=== PATIENT | female | born 1975 | race African-American/Black ===

== ENCOUNTER → 2021-06-19 | Outpatient (CLI) | payer OTHER ==
[2015-02-19 13:40] VITALS: BP 132/73
--- NOTE | 2021-06-19 17:25 | RAD ---
XR BILATERAL HIP (WITH OR WITHOUT PELVIS) LEFT 2 VIEWS, XR LUMBAR SPINE 2-3V 06/19/2021 9:20 AM INDICATION: Left hip and back pain COMPARISON: None available. TECHNIQUE: AP view the pelvis and 2 dedicated views of the left hip are provided. 3 views of the lum bar spine are provided. FINDINGS/ IMPRESSION: Left hip: There is no acute fracture or dislocation. Moderate joint space narrowing involving the lef t hip joint inferomedially with subcortical sclerosis and marginal osteophytosis compatible with mode rate osteoarthrosis of the left hip. Bone mineralization is within normal limits. Regional soft tissu es are within normal limits. There is no soft tissue gas or osseous erosion. No radiopaque foreign natalee dy. IUD is present. Lumbar spine: There is 2 mm retrolisthesis of L5 on S1. No spondylolysis. Vertebral body heights are maintained. Mild disc height loss at L3-L4. Mild anterior marginal osteophytosis. No significant osse ous neural foraminal or spinal canal stenosis. No acute fractures identified. Minimal levoconvex curv ature of the lumbar spine apex levocurvature at L2-L3. Moderate facet arthropathy noted at L4-L5, rig ht greater than left. Electronically signed by: Priyanka Abbott MD (06/19/2021 5:23 PM) [id number]
== END ==
LOC: RAD 09:12
PROVIDERS: ATTEND Anesthesiology Pain Medicine
DX: Z02.71 Encounter for disability determination (principal); M47.816 Spondylosis without myelopathy or radiculopathy, lumbar region; M43.8X6 Other specified deforming dorsopathies, lumbar region
CPT/HCPCS: 72100; 73502

== ENCOUNTER → 2021-06-25 | Outpatient (CLI) | payer MEDICAID ==
[2015-02-19 13:40] VITALS: BP 132/73
[2021-06-25 11:48] LABS: BASO % 1 % (0-3); EOS # 0.1 x10^3/uL (0.0-0.7); EOS % 1 % (0-3); HEMATOCRIT 39.7 % (36.0-47.0); HEMOGLOBIN 13.6 g/dL (12.0-15.5); LYMPH # 1.7 x10^3/uL (1.0-4.8); LYMPH % 27 % (24-48); MEAN CORPUSCULAR HEMOGLOBIN 31 pg (25-35); MEAN CORPUSCULAR HGB CONC 34 g/dL (31-37); MEAN CORPUSCULAR VOLUME 91 fL (79-100); MONO # 0.3 x10^3/uL (0.0-1.1); MONO % 5 % (0-9); NEUT # 4.2 x10^3uL (1.8-7.7); NEUT % 66 % (31-73); PLATELET COUNT 280 x10^3/uL (140-400); RED BLOOD COUNT 4.36 x10^6/uL (3.50-5.40); RED CELL DISTRIBUTION WIDTH 12.6 % (11.5-14.5); WHITE BLOOD COUNT 6.3 x10^3/uL (4.0-11.0)
[2021-06-25 11:54] LABS: ALBUMIN 3.6 g/dL (3.4-5.0); ALBUMIN/GLOBULIN RATIO 0.8 (1.0-1.7); CALCIUM 9.3 mg/dL (8.5-10.1); CREATININE 0.7 mg/dL (0.6-1.0); POTASSIUM 3.9 mmol/L (3.5-5.1); TOTAL BILIRUBIN 0.8 mg/dL (0.2-1.0); TOTAL PROTEIN 8.2 g/dL (6.4-8.2)
[2021-06-25 15:55] LABS: FREE T4 0.72 ng/dL (0.76-1.46); THYROID STIM HORMONE (TSH) 0.699 uIU/mL (0.358-3.740)
[2021-06-25 23:09] LABS: HEMOGLOBIN A1C 7.4 % (4.8-5.6)
== END ==
LOC: LAB 11:01
PROVIDERS: ATTEND Hospitalist
DX: I10 Essential (primary) hypertension (principal); Z00.00 Encounter for general adult medical examination without abnormal findings; D51.0 Vitamin B12 deficiency anemia due to intrinsic factor deficiency; E55.9 Vitamin D deficiency, unspecified
CPT/HCPCS: 36415; 80053; 80061; 82306; 82607; 83036; 84439; 84443; 85025

== ENCOUNTER → 2022-02-01 | Outpatient (CLI) | payer MEDICAID ==
[2015-02-19 13:40] VITALS: BP 132/73
[2022-02-01 11:20] LABS: ALBUMIN 3.3 g/dL (3.4-5.0); ALBUMIN/GLOBULIN RATIO 0.8 (1.0-1.7); CALCIUM 8.9 mg/dL (8.5-10.1); CREATININE 0.8 mg/dL (0.6-1.0); POTASSIUM 4.1 mmol/L (3.5-5.1); TOTAL BILIRUBIN 0.4 mg/dL (0.2-1.0); TOTAL PROTEIN 7.4 g/dL (6.4-8.2)
[2022-02-01 11:27] LABS: BASO % 1 % (0-3); EOS # 0.1 x10^3/uL (0.0-0.7); EOS % 2 % (0-3); HEMATOCRIT 39.5 % (36.0-47.0); HEMOGLOBIN 13.2 g/dL (12.0-15.5); LYMPH # 1.8 x10^3/uL (1.0-4.8); LYMPH % 32 % (24-48); MEAN CORPUSCULAR HEMOGLOBIN 31 pg (25-35); MEAN CORPUSCULAR HGB CONC 34 g/dL (31-37); MEAN CORPUSCULAR VOLUME 93 fL (79-100); MONO # 0.3 x10^3/uL (0.0-1.1); MONO % 5 % (0-9); NEUT # 3.3 x10^3uL (1.8-7.7); NEUT % 60 % (31-73); PLATELET COUNT 262 x10^3/uL (140-400); RED BLOOD COUNT 4.26 x10^6/uL (3.50-5.40); RED CELL DISTRIBUTION WIDTH 12.9 % (11.5-14.5); WHITE BLOOD COUNT 5.6 x10^3/uL (4.0-11.0)
[2022-02-01 19:31] LABS: CHOLESTEROL/HDL RATIO 3.5; FREE T4 0.77 ng/dL (0.76-1.46); THYROID STIM HORMONE (TSH) 0.672 uIU/mL (0.358-3.740)
[2022-02-02 02:21] LABS: HEMOGLOBIN A1C 7.6 % (4.8-5.6)
== END ==
LOC: LAB 09:51
PROVIDERS: ATTEND Hospitalist
DX: Z00.00 Encounter for general adult medical examination without abnormal findings (principal); D51.0 Vitamin B12 deficiency anemia due to intrinsic factor deficiency; E55.9 Vitamin D deficiency, unspecified
CPT/HCPCS: 36415; 80053; 80061; 82306; 82607; 82728; 82746; 83036; 83540; 84439; 84443; 85025